=== PATIENT | male | born 1945 | race Caucasian/White ===

== ENCOUNTER 2021-07-05 06:25 | Emergency (ER) | payer BC, MEDICAID ==
[~2021-07-05] VITALS: Ht 182.9 cm; Wt 91.0 kg
[2021-07-05] MEDS ORDERED: MORPHINE SULFATE 4 MG/ML CPJ (NOT FOR IM USE) IV ONE ×2 (09:30→09:45)
[2021-07-05 11:00] VITALS: BP 147/83
== END 2021-07-05 13:21 | disposition home or self-care (01) ==
LOC: ER 06:25
DX: R55 Syncope and collapse (principal); S00.83XA Contusion of other part of head, initial encounter; X58.XXXA Exposure to other specified factors, initial encounter; Y93.89 Activity, other specified; Y92.89 Other specified places as the place of occurrence of the external cause; Y99.8 Other external cause status
CPT/HCPCS: 70450; 70486; 93005; 96374; 99284; J2270

== ENCOUNTER 2021-07-18 16:15 | Inpatient (IN) | payer BC, MEDICAID ==
[~2021-07-18] VITALS: Ht 188 cm; Wt 79.4 kg
[2021-07-18] MEDS ORDERED: SODIUM CHLORIDE 0.9% 1,000 ML IV ONE (17:30)
[2021-07-18 18:09] LABS: HEMOGLOBIN. 15.7 g/dL (14.0-18.0); MEAN CORPUSCULAR HEMOGLOBIN 31.5 pg (28.0-32.0); MEAN CORPUSCULAR VOLUME 92.1 fL (80.0-94.0); MEAN PLATELET VOLUME 7.8 fl (7.4-10.4); PLATELET 332 x1000/uL (130-400); RED CELL DISTRIBUTION WIDTH 13.5 % (11.6-14.6)
[2021-07-18 18:15] LABS: CHLORIDE 83 mEq/L (98-107)
[2021-07-18] MEDS ORDERED: AZITHROMYCIN 500MG/250ML 250 ML IV ONE (18:45)
[2021-07-18] MEDS ORDERED: SODIUM CHLORIDE 0.9% 1000ML BAG (SEPSIS BOLUS) IV ONE (18:45)
[2021-07-18] MEDS ORDERED: CEFTRIAXONE 1 G PREMIX 50 ML IV ONE (18:45)
[2021-07-18 19:09] LABS: PLATELET ESTIMATE NORMAL
[2021-07-18] MEDS ORDERED: SODIUM BICARBONATE 8.4% 1 MEQ/ML 50ML SYR IV ONE (19:15)
[2021-07-18 20:53] LABS: INR 1.2; PARTIAL THROMBOPLASTIN TIME 37.6 sec (23.4-31.0); PROTHROMBIN TIME 12.5 sec (9.6-11.0)
[2021-07-19] MEDS ORDERED: SODIUM CHLORIDE 0.9% 1,000 ML IV SCH (08:30)
[2021-07-19] MEDS ORDERED: PANTOPRAZOLE SODIUM 40 MG/VIAL IV SCH (09:00)
[2021-07-19] MEDS ORDERED: NALOXONE HCL 0.4MG/ML VIAL IV PRN (09:45)
[2021-07-19 10:00] VITALS: BP 150/63
[2021-07-19] MEDS: DEXT 5%/0.9% NACL 1,000 ML IV SCH (10:06)
[2021-07-19] MEDS: FAMOTIDINE 20MG/2ML VIAL IV SCH (10:06)
[2021-07-19] MEDS: MORPHINE SULFATE 2 MG/ML CPJ (NOT FOR IM USE) IV PRN (10:17)
[2021-07-19] MEDS: PIPERACILLIN/TAZOBACTAM 3.375 G in DEXTROSE 5% WATER 50 ML IV SCH ×2 (11:55→22:08)
[2021-07-19 12:00] VITALS: BP 146/85
[2021-07-19 15:08] VITALS: BP 145/76
[2021-07-19 17:21] LABS: HEMATOCRIT. 38.4 % (42.0-52.0); MEAN CORPUSCULAR HEMOGLOBIN 30.8 pg (28.0-32.0); MEAN CORPUSCULAR VOLUME 91.1 fL (80.0-94.0); PLATELET 245 x1000/uL (130-400); RED BLOOD CELL COUNT 4.22 mill/uL (4.7-6.1); RED CELL DISTRIBUTION WIDTH 13.6 % (11.6-14.6)
[2021-07-19 17:40] LABS: CHLORIDE 100 mEq/L (98-107)
[2021-07-19 17:45] LABS: SODIUM URINE RANDOM 18 mEq/L
[2021-07-19 17:46] LABS: PHOSPHORUS 1.8 mg/dL (2.5-4.9)
[2021-07-19 17:50] LABS: *AMPHETAMINES SCREEN URINE NEGATIVE (NEGATIVE); *BARBITURATES SCREEN URINE NEGATIVE (NEGATIVE); *BENZODIAZEPINES SCREEN URINE NEGATIVE (NEGATIVE); *COCAINE SCREEN URINE NEGATIVE (NEGATIVE)
[2021-07-19 17:51] LABS: CANNABINOID URINE SCREEN NEGATIVE (NEGATIVE); METHADONE URINE SCREEN NEGATIVE (NEGATIVE); OPIATES URINE SCREEN PRESUMTIVE POSITIVE (NEGATIVE); PHENCYCLIDINE URINE SCREEN NEGATIVE (NEGATIVE)
[2021-07-19 18:00] VITALS: BP 113/63
[2021-07-19] MEDS ORDERED: VANCOMYCIN 1250MG in DEXTROSE 5% WATER 250ML IV NR (18:00)
[2021-07-19 18:41] LABS: PLATELET ESTIMATE NORMAL
[2021-07-19 20:00] VITALS: BP 111/62
[2021-07-19 22:00] VITALS: BP 142/72
[2021-07-20] VITALS (11 sets, daily range): BP systolic 103–155; BP diastolic 56–78
[2021-07-20] MEDS: DEXT 5%/0.9% NACL 1,000 ML IV SCH ×2 (00:31→11:57)
[2021-07-20] MEDS: PIPERACILLIN/TAZOBACTAM 3.375 G in DEXTROSE 5% WATER 50 ML IV SCH ×3 (05:43→20:58)
[2021-07-20] MEDS ORDERED: VANCOMYCIN 500 MG PREMIX 100 ML IV SCH (06:00)
[2021-07-20 07:58] LABS: CHLORIDE 101 mEq/L (98-107); HEMATOCRIT. 36.5 % (42.0-52.0); HEMOGLOBIN. 12.3 g/dL (14.0-18.0); MEAN CORPUSCULAR HEMOGLOBIN 31.1 pg (28.0-32.0); MEAN CORPUSCULAR VOLUME 91.9 fL (80.0-94.0); MEAN PLATELET VOLUME 6.9 fl (7.4-10.4); PLATELET 226 x1000/uL (130-400); RED BLOOD CELL COUNT 3.97 mill/uL (4.7-6.1); RED CELL DISTRIBUTION WIDTH 13.7 % (11.6-14.6)
[2021-07-20 08:04] LABS: PHOSPHORUS 1.4 mg/dL (2.5-4.9)
[2021-07-20] MEDS: FAMOTIDINE 20MG/2ML VIAL IV SCH (09:19)
[2021-07-20] MEDS ORDERED: POTASSIUM PHOS,M-BASIC-D-BASIC 30 MMOL in SODIUM CHLORIDE 0.9% 500 ML IV SCH (10:00)
[2021-07-20] MEDS: MORPHINE SULFATE 2 MG/ML CPJ (NOT FOR IM USE) IV PRN ×3 (10:56→20:58)
[2021-07-20 15:45] LABS: PLATELET ESTIMATE NORMAL
[2021-07-20] MEDS: VANCOMYCIN 1250MG in DEXTROSE 5% WATER 250ML IV SCH (17:54)
[2021-07-21] VITALS (10 sets, daily range): BP systolic 127–162; BP diastolic 63–101
[2021-07-21] MEDS: MORPHINE SULFATE 2 MG/ML CPJ (NOT FOR IM USE) IV PRN ×5 (02:04→22:52)
[2021-07-21] MEDS: DEXT 5%/0.9% NACL 1,000 ML IV SCH ×2 (02:07→14:16)
[2021-07-21] MEDS: PIPERACILLIN/TAZOBACTAM 3.375 G in DEXTROSE 5% WATER 50 ML IV SCH ×3 (05:23→22:05)
[2021-07-21] MEDS: VANCOMYCIN 1250MG in DEXTROSE 5% WATER 250ML IV SCH (05:23)
[2021-07-21 06:03] LABS: INR 1.1
[2021-07-21 06:10] LABS: CHLORIDE 106 mEq/L (98-107)
[2021-07-21 06:16] LABS: PHOSPHORUS 2.3 mg/dL (2.5-4.9)
[2021-07-21 06:21] LABS: HEMOGLOBIN. 12.3 g/dL (14.0-18.0); MEAN CORPUSCULAR HEMOGLOBIN 31.3 pg (28.0-32.0); MEAN CORPUSCULAR VOLUME 91.7 fL (80.0-94.0); MEAN PLATELET VOLUME 6.9 fl (7.4-10.4); PLATELET 215 x1000/uL (130-400); RED BLOOD CELL COUNT 3.93 mill/uL (4.7-6.1); RED CELL DISTRIBUTION WIDTH 13.7 % (11.6-14.6)
[2021-07-21] MEDS: FAMOTIDINE 20MG/2ML VIAL IV SCH (08:45)
[2021-07-21 10:44] LABS: PLATELET ESTIMATE NORMAL
[2021-07-22] VITALS (12 sets, daily range): BP systolic 141–172; BP diastolic 72–92
[2021-07-22] MEDS: DEXT 5%/0.9% NACL 1,000 ML IV SCH ×2 (03:05→14:48)
[2021-07-22] MEDS: MORPHINE SULFATE 2 MG/ML CPJ (NOT FOR IM USE) IV PRN ×3 (03:06→11:05)
[2021-07-22] MEDS: PIPERACILLIN/TAZOBACTAM 3.375 G in DEXTROSE 5% WATER 50 ML IV SCH ×3 (05:00→21:38)
[2021-07-22 06:52] LABS: INR 1.1; PARTIAL THROMBOPLASTIN TIME 27.2 sec (23.4-31.0); PROTHROMBIN TIME 12.1 sec (9.6-11.0)
[2021-07-22 06:52] LABS: CHLORIDE 106 mEq/L (98-107)
[2021-07-22 06:55] LABS: HEMATOCRIT. 42.4 % (42.0-52.0); HEMOGLOBIN. 13.5 g/dL (14.0-18.0); MEAN CORPUSCULAR HEMOGLOBIN 29.6 pg (28.0-32.0); MEAN CORPUSCULAR VOLUME 92.9 fL (80.0-94.0); RED BLOOD CELL COUNT 4.56 mill/uL (4.7-6.1)
[2021-07-22 06:59] LABS: PHOSPHORUS 2.1 mg/dL (2.5-4.9)
[2021-07-22 08:43] LABS: NUCLEATED RED BLOOD CELLS 1 /100 WBC; PLATELET ESTIMATE NORMAL
[2021-07-22 08:44] LABS: MEAN PLATELET VOLUME 7.7 fl (7.4-10.4); PLATELET 267 x1000/uL (130-400)
[2021-07-22] MEDS ORDERED: VANCOMYCIN 1 G PREMIX 200 ML IV SCH (09:00)
[2021-07-22] MEDS: FAMOTIDINE 20MG/2ML VIAL IV SCH (09:18)
[2021-07-22 09:44] LABS: CLARITY URINE CLOUDY (CLEAR); COLOR URINE YELLOW (YELLOW); KETONES URINE NEGATIVE (NEGATIVE); LEUKOCYTE ESTERASE URINE 2+ (NEGATIVE); NITRITE URINE POSITIVE (NEGATIVE); OCCULT BLOOD URINE 2+ (NEGATIVE); PROTEIN URINE 1+ (NEGATIVE); SPECIFIC GRAVITY URINE 1.016 (1.005-1.030); UROBILINOGEN URINE 0.2 E.U./dL (0.2-1.0)
[2021-07-22] MEDS: HYDRALAZINE 20MG/ML VIAL IV PRN ×2 (11:40→18:35)
[2021-07-22] MEDS ORDERED: CEFAZOLIN 1000MG PREMIX 50 ML IV ONE (12:30)
[2021-07-22] MEDS ORDERED: OXYCODONE HCL 5MG TABLET PO SCH (13:00)
[2021-07-22] MEDS ORDERED: MORPHINE SULFATE 2 MG/ML CPJ (NOT FOR IM USE) IV SCH (14:30)
[2021-07-22] MEDS ORDERED: MIDAZOLAM HCL 5 MG/5 ML VIAL ONE (15:25)
[2021-07-22] MEDS ORDERED: FENTANYL CITRATE/PF 50MCG/ML 2ML VIAL ONE ×2 (15:25→15:26)
[2021-07-22] MEDS ORDERED: FENTANYL CITRATE/PF 50MCG/ML 2ML VIAL IV PRN (15:35)
[2021-07-22] MEDS ORDERED: MIDAZOLAM HCL 5 MG/5 ML VIAL IV PRN (15:36)
[2021-07-22] MEDS ORDERED: DIPHENHYDRAMINE 50MG/ML VIAL IV PRN (15:42)
[2021-07-22] MEDS ORDERED: DIPHENHYDRAMINE 50MG/ML VIAL ONE ×2 (15:52→15:55)
[2021-07-22] MEDS ORDERED: POTASSIUM PHOS,M-BASIC-D-BASIC 20 MMOL in DEXT 5% WATER 243.3333 ML IV SCH (16:30)
[2021-07-22] MEDS: OXYCODONE HCL 5MG TABLET PO SCH (17:00)
[2021-07-22] MEDS: SUCRALFATE 1 G/10 ML UDC GT SCH (17:37)
[2021-07-22] MEDS: AMLODIPINE 10MG TABLET PO SCH (17:38)
[2021-07-22] MEDS: HYDROCODONE/ACETAMINOPHEN 10/325MG TABLET PO PRN (21:39)
[2021-07-23] VITALS (13 sets, daily range): BP systolic 119–161; BP diastolic 62–99
[2021-07-23] MEDS: SUCRALFATE 1 G/10 ML UDC GT SCH ×4 (01:42→17:20)
[2021-07-23] MEDS: HYDROCODONE/ACETAMINOPHEN 10/325MG TABLET PO PRN ×3 (01:43→12:02)
[2021-07-23] MEDS: DEXT 5%/0.9% NACL 1,000 ML IV SCH (05:26)
[2021-07-23] MEDS: PIPERACILLIN/TAZOBACTAM 3.375 G in DEXTROSE 5% WATER 50 ML IV SCH ×3 (05:26→21:37)
[2021-07-23] MEDS: METOCLOPRAMIDE HCL 10MG/2ML VIAL IV SCH ×3 (05:26→17:21)
[2021-07-23 07:27] LABS: HEMATOCRIT. 37.8 % (42.0-52.0); HEMOGLOBIN. 12.7 g/dL (14.0-18.0); MEAN CORPUSCULAR HEMOGLOBIN 30.9 pg (28.0-32.0); MEAN CORPUSCULAR VOLUME 91.9 fL (80.0-94.0); MEAN PLATELET VOLUME 6.9 fl (7.4-10.4); PLATELET 189 x1000/uL (130-400); RED BLOOD CELL COUNT 4.11 mill/uL (4.7-6.1); RED CELL DISTRIBUTION WIDTH 13.3 % (11.6-14.6)
[2021-07-23 07:39] LABS: CHLORIDE 107 mEq/L (98-107)
[2021-07-23 07:46] LABS: PHOSPHORUS 2.4 mg/dL (2.5-4.9)
[2021-07-23] MEDS: FAMOTIDINE 20MG TABLET GT SCH ×2 (08:34→20:34)
[2021-07-23] MEDS: AMLODIPINE 10MG TABLET PO SCH (08:34)
[2021-07-23] MEDS: OXYCODONE HCL 5MG TABLET PO SCH ×3 (09:36→21:37)
[2021-07-23] MEDS ORDERED: POTASSIUM CHLORIDE 20MEQ TABLET SR PO SCH (12:15)
[2021-07-23] MEDS: THIAMINE HCL 100MG TABLET PO SCH (13:56)
[2021-07-23] MEDS: MULTIVITAMINS,THER W-MINERALS TABLET PO SCH (13:56)
[2021-07-23 14:08] LABS: PLATELET ESTIMATE NORMAL
[2021-07-23] MEDS: POTASSIUM-SODIUM PHOSPHATE POWDER PACKET PO SCH ×2 (15:51→17:14)
[2021-07-23] MEDS: ACETAMINOPHEN 325MG TABLET PO PRN (18:02)
[2021-07-24] MEDS: METOCLOPRAMIDE HCL 10MG/2ML VIAL IV SCH ×5 (01:01→23:45)
[2021-07-24] MEDS: SUCRALFATE 1 G/10 ML UDC GT SCH ×3 (01:01→12:00)
[2021-07-24] MEDS: ACETAMINOPHEN 325MG TABLET PO PRN ×3 (01:02→16:25)
[2021-07-24 02:00] VITALS: BP 148/76
[2021-07-24 03:31] VITALS: BP 146/75
[2021-07-24] MEDS: PIPERACILLIN/TAZOBACTAM 3.375 G in DEXTROSE 5% WATER 50 ML IV SCH ×3 (05:07→23:43)
[2021-07-24] MEDS: OXYCODONE HCL 5MG TABLET PO SCH ×4 (05:08→23:44)
[2021-07-24 05:40] VITALS: BP 134/88
[2021-07-24 06:56] LABS: HEMATOCRIT. 36.2 % (42.0-52.0); MEAN CORPUSCULAR HEMOGLOBIN 30.4 pg (28.0-32.0); MEAN CORPUSCULAR VOLUME 91.7 fL (80.0-94.0); MEAN PLATELET VOLUME 6.8 fl (7.4-10.4); PLATELET 209 x1000/uL (130-400); RED BLOOD CELL COUNT 3.95 mill/uL (4.7-6.1); RED CELL DISTRIBUTION WIDTH 13.8 % (11.6-14.6)
[2021-07-24 07:04] LABS: CHLORIDE 108 mEq/L (98-107)
[2021-07-24 08:00] VITALS: BP 135/86
[2021-07-24] MEDS: THIAMINE HCL 100MG TABLET PO SCH (08:16)
[2021-07-24] MEDS: POTASSIUM-SODIUM PHOSPHATE POWDER PACKET PO SCH ×2 (08:16→17:00)
[2021-07-24] MEDS: MULTIVITAMINS,THER W-MINERALS TABLET PO SCH (08:16)
[2021-07-24] MEDS: FAMOTIDINE 20MG TABLET GT SCH ×2 (08:16→21:26)
[2021-07-24] MEDS: AMLODIPINE 10MG TABLET PO SCH (08:16)
[2021-07-24] MEDS ORDERED: POTASSIUM CHLORIDE 20MEQ TABLET SR PO SCH (09:00)
[2021-07-24 12:00] VITALS: BP 132/67
[2021-07-24] MEDS: FUROSEMIDE 20MG TABLET PO SCH (13:00)
[2021-07-24 13:42] LABS: PLATELET ESTIMATE NORMAL
[2021-07-24 16:00] VITALS: BP 149/82
[2021-07-24] MEDS ORDERED: MORPHINE SULFATE 2 MG/ML CPJ (NOT FOR IM USE) IV NR (20:30)
[2021-07-25] MEDS: ACETAMINOPHEN 325MG TABLET PO PRN ×4 (02:48→20:29)
[2021-07-25 05:33] LABS: HEMATOCRIT. 40.6 % (42.0-52.0); HEMOGLOBIN. 13.4 g/dL (14.0-18.0); MEAN CORPUSCULAR HEMOGLOBIN 30.9 pg (28.0-32.0); MEAN CORPUSCULAR VOLUME 93.4 fL (80.0-94.0); MEAN PLATELET VOLUME 6.9 fl (7.4-10.4); PLATELET 240 x1000/uL (130-400); RED BLOOD CELL COUNT 4.34 mill/uL (4.7-6.1); RED CELL DISTRIBUTION WIDTH 13.9 % (11.6-14.6)
[2021-07-25] MEDS: CEFAZOLIN 2,000 MG in DEXT 5% WATER 100 ML IV SCH ×3 (05:48→21:19)
[2021-07-25] MEDS: OXYCODONE HCL 5MG TABLET PO SCH ×3 (05:49→21:52)
[2021-07-25 05:52] LABS: CHLORIDE 109 mEq/L (98-107)
[2021-07-25 06:04] LABS: PHOSPHORUS 2.1 mg/dL (2.5-4.9)
[2021-07-25 08:00] VITALS: BP 149/69
[2021-07-25] MEDS: FAMOTIDINE 20MG TABLET GT SCH ×2 (09:18→20:29)
[2021-07-25] MEDS: THIAMINE HCL 100MG TABLET PO SCH (09:18)
[2021-07-25] MEDS: AMLODIPINE 10MG TABLET PO SCH (09:19)
[2021-07-25] MEDS: MULTIVITAMINS,THER W-MINERALS TABLET PO SCH (09:19)
[2021-07-25] MEDS: FUROSEMIDE 20MG TABLET PO SCH (09:19)
[2021-07-25 10:00] VITALS: BP 145/97
[2021-07-25] MEDS ORDERED: OXYCODONE HCL 5MG TABLET PO SCH (10:00)
[2021-07-25] MEDS ORDERED: POTASSIUM PHOS,M-BASIC-D-BASIC 20 MMOL in DEXT 5% WATER 243.3333 ML IV SCH (11:00)
[2021-07-25 12:00] VITALS: BP 154/81
[2021-07-25 12:00] LABS: BG BASE EXCESS 8.3 mmol/L (-2.0-2.0); BG DEOXYHEMOGLOBIN 6.4 % (0.0-5.0); BG FRACTION INSPIRED OXYGEN 21; BG HCO3 ACT 32.9 mmol/L (22.0-26.0); BG METHEMOGLOBIN 0.2 % (0.0-1.5); BG OXYGEN SATURATION 93.5 % (92.0-98.5); BG OXYHEMOGLOBIN 92.4 % (94.0-97.0); BG PCO2 45.3 mmHg (35.0-45.0); BG PH 7.479 (7.350-7.450); BG PO2 59.3 mmHg (75.0-100.0); BG TOTAL HEMOGLOBIN 13.6 g/dL (12.0-18.0); BG VENT MODE ROOM AIR
[2021-07-25] MEDS ORDERED: OXYC-485 PO (14:51)
[2021-07-25 16:00] VITALS: BP 164/90
[2021-07-25 19:55] LABS: PLATELET ESTIMATE NORMAL
[2021-07-25 20:00] VITALS: BP 147/76
[2021-07-25 22:00] VITALS: BP 151/90
[2021-07-25] MEDS: ONDANSETRON HCL 4MG/2ML INJ IV PRN (22:26)
[2021-07-26] VITALS (11 sets, daily range): BP systolic 96–161; BP diastolic 55–77
[2021-07-26] MEDS: METOCLOPRAMIDE HCL 10MG/2ML VIAL IV SCH ×4 (00:39→17:17)
[2021-07-26] MEDS: OXYCODONE HCL 5MG TABLET PO SCH ×4 (03:52→22:18)
[2021-07-26] MEDS: CEFAZOLIN 2,000 MG in DEXT 5% WATER 100 ML IV SCH ×3 (05:53→22:17)
[2021-07-26 06:21] LABS: HEMATOCRIT. 41.6 % (42.0-52.0); HEMOGLOBIN. 13.8 g/dL (14.0-18.0); MEAN CORPUSCULAR HEMOGLOBIN 31.3 pg (28.0-32.0); MEAN CORPUSCULAR VOLUME 94.1 fL (80.0-94.0); MEAN PLATELET VOLUME 7.1 fl (7.4-10.4); PLATELET 265 x1000/uL (130-400); RED BLOOD CELL COUNT 4.42 mill/uL (4.7-6.1); RED CELL DISTRIBUTION WIDTH 14.2 % (11.6-14.6)
[2021-07-26 06:36] LABS: CHLORIDE 106 mEq/L (98-107)
[2021-07-26] MEDS ORDERED: POTASSIUM CHLORIDE 20MEQ/PACKET PO NR ×2 (08:30→13:00)
[2021-07-26] MEDS: MULTIVITAMINS,THER W-MINERALS TABLET PO SCH (08:59)
[2021-07-26] MEDS: THIAMINE HCL 100MG TABLET PO SCH (09:00)
[2021-07-26] MEDS: AMLODIPINE 10MG TABLET PO SCH (09:00)
[2021-07-26] MEDS: FAMOTIDINE 20MG TABLET GT SCH ×2 (09:00→20:39)
[2021-07-26] MEDS: POTASSIUM-SODIUM PHOSPHATE POWDER PACKET PO SCH ×2 (09:01→17:17)
[2021-07-26] MEDS: ACETAMINOPHEN 325MG TABLET PO PRN ×2 (15:07→20:39)
[2021-07-26 15:49] LABS: PLATELET ESTIMATE NORMAL
[2021-07-26] MEDS ORDERED: CLONIDINE 0.1MG TABLET PO SCH (18:00)
[2021-07-26] MEDS ORDERED: HYDRALAZINE HCL 10MG TABLET PO SCH (22:00)
[2021-07-27] VITALS (8 sets, daily range): BP systolic 120–143; BP diastolic 61–77
[2021-07-27] MEDS: METOCLOPRAMIDE HCL 10MG/2ML VIAL IV SCH ×5 (00:17→23:16)
[2021-07-27] MEDS: OXYCODONE HCL 5MG TABLET PO SCH ×4 (03:56→20:42)
[2021-07-27] MEDS: CEFAZOLIN 2,000 MG in DEXT 5% WATER 100 ML IV SCH ×3 (05:24→20:42)
[2021-07-27 06:23] LABS: HEMATOCRIT. 39.1 % (42.0-52.0); HEMOGLOBIN. 12.8 g/dL (14.0-18.0); MEAN CORPUSCULAR HEMOGLOBIN 30.6 pg (28.0-32.0); MEAN CORPUSCULAR VOLUME 93.2 fL (80.0-94.0); PLATELET 255 x1000/uL (130-400); RED CELL DISTRIBUTION WIDTH 14.1 % (11.6-14.6)
[2021-07-27 06:50] LABS: CHLORIDE 110 mEq/L (98-107)
[2021-07-27 07:00] LABS: PHOSPHORUS 2.4 mg/dL (2.5-4.9)
[2021-07-27] MEDS: AMLODIPINE 10MG TABLET PO SCH (08:45)
[2021-07-27] MEDS: ACETAMINOPHEN 325MG TABLET PO PRN ×2 (08:45→18:01)
[2021-07-27] MEDS: POTASSIUM-SODIUM PHOSPHATE POWDER PACKET PO SCH ×2 (08:45→17:58)
[2021-07-27] MEDS: THIAMINE HCL 100MG TABLET PO SCH (08:45)
[2021-07-27] MEDS: MULTIVITAMINS,THER W-MINERALS TABLET PO SCH (08:45)
[2021-07-27] MEDS: FAMOTIDINE 20MG TABLET GT SCH ×2 (08:45→20:42)
[2021-07-27] MEDS ORDERED: AMLODIPINE 10MG TABLET PO SCH (09:00)
[2021-07-27] MEDS ORDERED: FUROSEMIDE 20MG TABLET PO SCH (09:00)
[2021-07-27 12:56] LABS: PLATELET ESTIMATE NORMAL
[2021-07-27] MEDS: ONDANSETRON HCL 4MG/2ML INJ IV PRN (17:58)
[2021-07-28] VITALS: BP 139/74
[2021-07-28] MEDS: OXYCODONE HCL 5MG TABLET PO SCH ×3 (03:14→15:56)
[2021-07-28 04:00] VITALS: BP 134/81
[2021-07-28] MEDS: CEFAZOLIN 2,000 MG in DEXT 5% WATER 100 ML IV SCH ×2 (05:16→13:51)
[2021-07-28] MEDS: METOCLOPRAMIDE HCL 10MG/2ML VIAL IV SCH ×3 (05:16→17:27)
[2021-07-28 08:00] VITALS: BP 142/71
[2021-07-28] MEDS: AMLODIPINE 10MG TABLET PO SCH (09:07)
[2021-07-28] MEDS: THIAMINE HCL 100MG TABLET PO SCH (09:07)
[2021-07-28] MEDS: POTASSIUM-SODIUM PHOSPHATE POWDER PACKET PO SCH ×2 (09:07→17:27)
[2021-07-28] MEDS: FAMOTIDINE 20MG TABLET GT SCH (09:07)
[2021-07-28] MEDS: MULTIVITAMINS,THER W-MINERALS TABLET PO SCH (09:10)
[2021-07-28 10:25] LABS: HEMOGLOBIN. 13.6 g/dL (14.0-18.0); MEAN CORPUSCULAR HEMOGLOBIN 30.6 pg (28.0-32.0); MEAN CORPUSCULAR VOLUME 94.1 fL (80.0-94.0); MEAN PLATELET VOLUME 7.2 fl (7.4-10.4); PLATELET 286 x1000/uL (130-400); RED BLOOD CELL COUNT 4.46 mill/uL (4.7-6.1); RED CELL DISTRIBUTION WIDTH 14.3 % (11.6-14.6)
[2021-07-28 10:36] LABS: CHLORIDE 112 mEq/L (98-107)
[2021-07-28 10:41] LABS: PHOSPHORUS 2.3 mg/dL (2.5-4.9)
[2021-07-28 12:00] VITALS: BP 152/104
[2021-07-28] MEDS: ACETAMINOPHEN 325MG TABLET PO PRN ×2 (12:54→19:45)
[2021-07-28 13:52] LABS: PLATELET ESTIMATE NORMAL
[2021-07-28] MEDS ORDERED: METO5TAB86 MT (15:43)
[2021-07-28] MEDS ORDERED: NAPH1POW3 PO (15:43)
[2021-07-28] MEDS ORDERED: FAMO20TA8 GT (15:43)
[2021-07-28] MEDS ORDERED: AMLO10TA80 PO (15:43)
[2021-07-28 16:00] VITALS: BP 153/64
[2021-07-28 20:01] VITALS: BP 188/167
[2021-07-28] MEDS: HYDRALAZINE 20MG/ML VIAL IV PRN (20:40)
== END 2021-07-28 23:42 | disposition home health service (06) | DRG 871 ==
LOC: ER 16:15 → EDBEDREQ 17:45 → MICUSO 18:53 → EDBEDREQ 18:57 → EDBEDREQSVC 18:57 → EDBEDREQTM 18:57 → 5EST 07-19 09:14
PROVIDERS: ADMIT Internal Medicine; ATTEND Internal Medicine
PROC: 0DH63UZ Insertion of Feeding Device into Stomach, Percutaneous Approach (ICD-10-PCS; principal; 2021-07-22)
PROC: 05HY33Z Insertion of Infusion Device into Upper Vein, Percutaneous Approach (ICD-10-PCS; 2021-07-24)
PROC: B54MZZA Ultrasonography of Right Upper Extremity Veins, Guidance (ICD-10-PCS; 2021-07-24)
DX: A41.01 Sepsis due to Methicillin susceptible Staphylococcus aureus (principal); E43 Unspecified severe protein-calorie malnutrition; N17.0 Acute kidney failure with tubular necrosis; J18.9 Pneumonia, unspecified organism; E87.1 Hypo-osmolality and hyponatremia; E87.3 Alkalosis; N39.0 Urinary tract infection, site not specified; E83.52 Hypercalcemia; E87.5 Hyperkalemia; Z20.822 Contact with and (suspected) exposure to COVID-19; D64.9 Anemia, unspecified; E83.39 Other disorders of phosphorus metabolism; I10 Essential (primary) hypertension; K29.70 Gastritis, unspecified, without bleeding; R13.13 Dysphagia, pharyngeal phase; K74.60 Unspecified cirrhosis of liver; E87.8 Other disorders of electrolyte and fluid balance, not elsewhere classified; Z82.49 Family history of ischemic heart disease and other diseases of the circulatory system; Z85.818 Personal history of malignant neoplasm of other sites of lip, oral cavity, and pharynx; Z85.828 Personal history of other malignant neoplasm of skin; Z87.442 Personal history of urinary calculi; Z89.512 Acquired absence of left leg below knee; Z90.5 Acquired absence of kidney; Z92.3 Personal history of irradiation; Z93.3 Colostomy status; Z68.22 Body mass index [BMI] 22.0-22.9, adult
CPT/HCPCS: 36415; 36600; 71045; 76705; 76770; 76937; 80048; 80053; 80202; 80305; 81003; 82330; 82375; 82533; 82805; 83605; 83735; 83880; 83935; 83970; 84100; 84300; 84443; 84484; 84550; 85025; 87077; 87186; 87426; 88305; 88312; 88313; 92610; 93005; 93306; 93970; 99285; C1725; J0360; J0456; J0690; J0696; J1200; J2250; J2270; J2405; J2543; J2765; J3010; J3370; J3490; J7030; J7040; J7042; J7060